=== PATIENT | female | born 1965 | race American Indian/Alaskan Native ===

== ENCOUNTER 2017-05-14 20:23 | Inpatient (IN) | payer MEDICAID, OTHER ==
[2017-05-14 21:57] LABS: BASO % 0.6 % (0.0-2.0); EOS % 0.7 % (0.0-4.0); HEMATOCRIT 38.6 % (34.0-47.0); LYMPH % 41.2 % (20.0-40.0); MEAN CELL VOLUME 92.3 fL (81.0-99.0); MEAN CORPUSCULAR HEMOGLOBIN 31.2 pg (27.0-31.0); MEAN CORPUSCULAR HGB CONC 33.8 g/dL (33.0-37.0); MONO # 0.4 K/uL (0.0-0.8); NRBC % 0.1 % (0.0-2.0); RED CELL DISTRIBUTION WIDTH 15.1 % (11.5-14.5); WHITE BLOOD COUNT 7.2 K/uL (4.8-10.8)
[2017-05-14 22:06] LABS: CHLORIDE 104 mmol/L (98-107); POTASSIUM 3.9 mmol/L (3.6-5.2); SODIUM 140 mmol/L (132-148)
[2017-05-14 22:07] LABS: RBC URINE < 1 /hpf (0-3); URINE BACTERIA RARE (<OCC); URINE BILIRUBIN NEGATIVE (NEGATIVE); URINE BLOOD NEGATIVE (NEGATIVE); URINE COLOR Yellow (YELLOW); URINE GLUCOSE (UA) NORMAL (Normal); URINE KETONE NEGATIVE (NEGATIVE); URINE LEUKOCYTE ESTERASE TRACE Leu/uL (Negative); URINE PROTEIN NEGATIVE (NEGATIVE); URINE UROBILINOGEN NORMAL mg/dL (0.2-1.0); WBC URINE 3 /hpf (0-5)
[2017-05-14 22:08] LABS: ALB/GLOB RATIO 1.1 (1.0-2.1); AST/SGOT 35 U/L (14-36); BILIRUBIN,TOTAL 0.4 mg/dL (0.2-1.3); CARBON DIOXIDE 22 mmol/L (22-30); GFR AFRICAN-AMERICAN > 60
[2017-05-14 22:09] LABS: ALCOHOL SERUM 110 mg/dl (0-10); ALKALINE PHOSPHATASE 92 U/L (38-126); ALT/SGPT 39 U/L (9-52); BLOOD UREA NITROGEN 14 mg/dL (7-17); CALCIUM 8.7 mg/dl (8.6-10.4); GLUCOSE,RANDOM 88 mg/dL (65-105)
--- NOTE | 2017-05-14 22:40 | C.PDOC ---
History Of Present Illness Pt is here requesting detox from alcohol and heroin. Time Seen by Provider: 05/14/17 21:28 Chief Complaint (Nursing): Substance Abuse History Per: Patient Onset/Duration Of Symptoms: Days Current Symptoms Are (Timing): Still Present Suicide/Self Injury Attempted (Context): None Modifying Factor(s): Alcohol, Narcotics, Cocaine Associated Symptoms: denies: Suicidal Thoughts, Suicidal Plan Additional History Per: Prior Records Past Medical History Reviewed: Historical Data, Nursing Documentation, Vital Signs Vital Signs: Last Vital Signs Temp 98.1 F 05/14/17 21:04 Pulse 90 05/14/17 21:04 Resp 16 05/14/17 21:04 BP 100/66 05/14/17 21:04 Pulse Ox 96 05/14/17 21:04 - Medical History PMH: Schizophrenia, Seizures - [facility] Procedures DETOXIFICATION SERVICES FOR SUBSTANCE ABUSE TREATMENT (11/05/15) Family History: States: Unknown Family Hx - Social History Hx Tobacco Use: Yes Hx Alcohol Use: Yes Hx Substance Use: Yes (HEROIN, Cocaine) - Immunization History Hx Tetanus Toxoid Vaccination: Yes Hx Influenza Vaccination: No Hx Pneumococcal Vaccination: No Review Of Systems Except As Marked, All Systems Reviewed And Found Negative. Constitutional: Negative for: Fever Cardiovascular: Negative for: Chest Pain Respiratory: Negative for: Shortness of Breath Gastrointestinal: Negative for: Vomiting, Abdominal Pain Musculoskeletal: Negative for: Neck Pain Skin: Negative for: Rash Neurological: Negative for: Weakness, Numbness Physical Exam - Physical Exam Appears: Non-toxic, No Acute Distress Skin: Normal Color, Warm, Dry, No Rash Head: Atraumatic, Normacephalic Eye(s): bilateral: Normal Inspection, PERRL, EOMI Neck: Normal ROM, Supple Cardiovascular: Rhythm Regular Respiratory: Normal Breath Sounds, No Accessory Muscle Use Gastrointestinal/Abdominal: Soft, No Tenderness Extremity: Normal ROM Neurological/Psych: Oriented x3, Normal Motor, Normal Sensation ED Course And Treatment - Laboratory Results Result Diagrams: 05/14/17 21:53 05/14/17 21:53 Lab Interpretation: No Acute Changes Urine POC: Negative O2 Sat by Pulse Oximetry: 96 Pulse Ox Interpretation: Normal Progress Note: Pt is medically stable for detox admission. Disposition Counseled Patient/Family Regarding: Studies Performed, Diagnosis, Smoking Cessation - Disposition Disposition: HOSPITALIZED Disposition Time: 22:41 Condition: STABLE - Clinical Impression Clinical Impression: Alcohol dependence, Opioid dependence, Drug abuse Decision To Admit - Pt Status Changed To: Hospital Disposition Of: Inpatient - Admit Certification Admit to Inpatient:: After my assessment, the patient will require hospitalization for at least two midnights. This is because of the severity of symptoms shown, intensity of services needed, and/or the medical risk in this patient being treated as an outpatient. - InPatient: Physician Admission Certification: I certify that this patient requires 2 or more midnights of care for the following reason:: Detox. - . Bed Request Type: Detox Admitting Physician: Sadnra Gramajo Patient Diagnosis: Alcohol dependence, Opioid dependence, Drug abuse
[2017-05-14] MEDS ORDERED: Aluminum Hydroxide/Magnesium Hydroxide Susp (30 mL) PO PRN (23:10)
--- NOTE | 2017-05-15 02:26 | PCM.BM ---
<Shae Reeder - Last Filed: 05/15/17 02:29> Treatment Plan Problems - Problems identified on initial assessmt Alcohol Dependence Date Initiated: 05/15/17 Time Initiated: 02:25 Assessment reference: NA Opiate dependence Date Initiated: 05/15/17 Time Initiated: 02:30 Assessment reference: NA Treatment assets and liabiliti Patient Assests: cooperative, ADL independent, negotiates basic needs, good interpersonal skills Patient Liabilities: substance abuse, medical problems - Milieu Protocol Maintain good personal hygiene: daily Encourage regular showers, daily Remind patient to perform daily oral care, daily Assist patient to perform ADL's Conduct patient checks and document Observation sheet: Q15 minutes Maintain personal safety: every shift Educate patient to report safety concerns to staff, every shift Monitor environment for contraband/sharps Medication safety: Monitor for expected outcome, potential side effects: every shift, Assess barriers to learning: every shift, Assess readiness for medication education: every shift <Lianne Harding - Last Filed: 05/15/17 14:48> Family Contact Family involvement: Famliy/SO not involved Family contact: Patient agrees to contact - Goals for Treatment Patient goals for treatment: Complete detox and attend IOP at [facility] where pt. is receiving psychiatric care. Discharge/Continuing Care - Education Needs Education Needs: Patient Medication, Patient Diagnosis/Disease Process, Patient Coping Skills, Patient Anger Management skills, Patient Placement options, Patient Community resources, Patient Activities of Daily Living - Discharge Discharge Criteria: No longer exhibiting s/s of withdrawal, Reduction of target symptoms Discharge to:: With Family - Treatment Team Participation Patient/Family/SO Statement: 05/15/17 14:49 "I wanna go to [facility] for IOP...maybe I'll consider Suboxone." Discussed with Family/SO: No Was Patient/Family/SO present at Treatment Team Meeting: Yes <Sandra Gramajo - Last Filed: 05/16/17 11:02> - Diagnosis (1) Alcohol use disorder, severe, dependence Status: Acute Interventions: 05/16/17 11:01 * Assess 7x/week regarding severity of withdrawal * Educate regarding risks, benefits, side effects and alternatives of medications * Use Motivational Interviewing for abstinence * Use CBT for relapse prevention * Medication management for withdrawal symptoms * Encourage medication assisted treatment * (2) Opioid dependence Status: Acute Interventions: 05/16/17 11:01 * Assess 7x/week regarding severity of withdrawal * Educate regarding risks, benefits, side effects and alternatives of medications * Use Motivational Interviewing for abstinence * Use CBT for relapse prevention * Medication management for withdrawal symptoms * Encourage medication assisted treatment *
[2017-05-15] MEDS: Multiple Vitamins Tab PO SCH (10:09)
--- NOTE | 2017-05-15 15:17 | PCM.PSYCH ---
Initial Psychiatric Evaluation - Initial Psychiatric Evaluation Type of Admission: Voluntary Legal Status: Capacity Chief Complaint (in patient's own words): "I am not doing good doc, I drink a lot" History of Present Illness and Precipitating Events: Pt is a 51 year old female with no PMH who presented to the ED on 05/14/2017 requesting opioid, cocaine and alcohol detox. Pt reports she is but has been from her for 5 years, has 12 children, lives with her mother in law and is currently unemployed. Pt reports that her "drug of choice" is alcohol which she states has been drinking since the age of [age] years old. She reports drinking 2-3 pints of alcohol a day. Pt states that she started using heroin at the age of [age] years old. She reports she uses approximately 10 bags of heroin daily, which she intranasally. She also uses crack daily which she reports started approximately 5 years ago. Pt reports she has attended approximately 5 detoxes in the past as well as 2 rehabs. She reports she attends NA meetings sometimes and is currently in a Methadone program where they are trying " to do detox me from it". Pt reports that she was on 190mg of Methadone at one point and has been decreased daily by 10 mg which she reports "is too much doc and that is why I relapsed". She reports that when she stops drinking she "shakes, I get nervous". Wenconfirmed her last dose as 25 mg yesterday Pt smokes approximately 1/2 a pack of cigarettes daily. Pt denies any other substance use. As per her records, pt has had one previous psychiatric admission in the past at [facility] due to "Bipolar disorder or Schizophrenia" and he she was "hearing things all due to stress and depression in my life." Pt denies any current hallucinations, or SI. Pt also reports that her mother has a psychiatric history of bipolar disorder as well as "my mother is an alcoholic". Pt denies any current hallucinations, or SI. After care discussed. Pt states she is unsure what she wants to do. Pt is encouraged to attend [facility]'s IOP where she currently follows up to ensure she can receive care at the same facility. Pt states "yeah, that's a good idea. I also want NA and AA meetings too". Pt reports that perhaps she "would like to try Suboxone again since it was good for me, I was on it before and was clean for 4 years" She will speak with counselors and SW to arrange this. Pt is encouraged to do so. Current Medications: Active Medications Generic Name Dose Route Start Last Admin Trade Name Freq PRN Reason Stop Dose Admin Acetaminophen 650 mg 05/14/17 23:08 Tylenol 325mg Tab PO Q6 PRN Pain, moderate (4-7) Al Hydrox/Mg Hydrox/Simethicone 30 ml 05/14/17 23:10 Maalox 30 Ml PO TID PRN Indigestion / Heartburn Chlordiazepoxide 25 mg 05/15/17 00:00 05/15/17 13:17 Librium PO 05/18/17 23:59 25 mg Q6H DEISY Administration Taper Chlordiazepoxide 25 mg 05/14/17 23:04 Librium PO Q4H PRN Alcohol Withdrawal Clonidine HCl 0.1 mg 05/14/17 23:04 05/15/17 06:13 Catapres PO 0.1 mg Q4H PRN Administration Symptoms of alcohol withdrawl Folic Acid 1 mg 05/15/17 10:00 05/15/17 10:09 Folic Acid PO 1 mg DAILY DEISY Administration Gabapentin 300 mg 05/15/17 10:00 05/15/17 10:09 Neurontin PO 300 mg BID DEISY Administration Hydroxyzine HCl 50 mg 05/14/17 23:08 Atarax PO Q6H PRN Anxiety Loperamide HCl 2 mg 05/14/17 23:10 Imodium PO Q8 PRN Diarrhea Methadone HCl 25 mg 05/15/17 10:00 05/15/17 11:07 Methadone PO 05/20/17 09:59 25 mg Q24H DEISY Administration Taper Multivitamins 1 tab 05/15/17 10:00 05/15/17 10:09 Hexavitamin PO 1 tab DAILY DEISY Administration Ondansetron HCl 4 mg 05/14/17 23:10 Zofran Tab PO Q8 PRN Nausea/Vomiting Pneumococcal Polyvalent Vaccine 0.5 ml 05/18/17 10:00 Pneumovax 23 Vaccine IM 05/18/17 10:01 .ONCE ONE Thiamine HCl 100 mg 05/15/17 10:00 05/15/17 10:09 Vitamin B1 Tab PO 100 mg DAILY DEISY Administration Trazodone HCl 100 mg 05/14/17 23:08 05/15/17 00:48 Desyrel PO 100 mg HS PRN Administration Insomnia Past Psychiatric History - Past Psychiatric History Pertinent Medical Hx (Current Medical&Sleep Prob, Allergies): Allergies Allergy/AdvReac Type Severity Reaction Status Date / Time ibuprofen Allergy Verified 05/14/17 21:06 tomato Allergy Verified 05/14/17 21:06 ACIDS Allergy Uncoded 05/14/17 21:06 KETCHUP Allergy Uncoded 05/14/17 21:06 QUEtiapine [SEROquel] 400 mg PO DAILY 05/14/17 Sertraline [Zoloft] 50 mg PO DAILY 05/14/17 Review of Systems - Neurological Neurological: Tremor - Psychiatric Psychiatric: Abnormal Sleep Pattern, Anhedonia, Anxiety, Difficulty Concentrating. absent: Hallucinations, Homicidal Ideation, Suicidal Ideation Mental Status Examination - Personal Presentation Personal Presentation: Looks stated age - Affect Affect: Broad - Motor Activity Motor Activity: Calm - Reliability in Providing Information Reliability in Providing Information: Good - Speech Speech: Organized, Relevant, Coherent - Mood Mood: Neutral - Formal Thought Process Formal Thought Process: No Impairment - Obsessions/Compulsions Obsessions: No Compulsions: No - Cognitive Functions Orientation: Person, Place, Situation, Time Sensorium: Alert Attention/Concentration: Attentive Estimate of Intelligence: Average Judgement: Intact, as evidence by: Insight regarding need for hospitalization Memory: Recent intact, as evidence by: Ability to recall events of the day, Remote intact, as evidenced by: Abilit to recall sig. life events - Risk Risk: Withdrawal, Diminished functioning - Strength & Assets Inventory Strength & Assets Inventory: Family support, Interests/hobbies, Life experience , Cooperative DSM 5 DX - DSM 5 DSM 5 Diagnosis: Opioid use disorder, severe Opioid withdrawal Cocaine use disorder, severe Alcohol use disorder, severe Alcohol withdrawal Bipolar disorder, unspecified - Recommended/Plan of Treatment Treatment Recommendations and Plan of Treatment: Librium detox Methadone detox Start: Librium taper Methadone taper Clonidine 0.1mg PO Q4 Folic Acid 1mg PO DAILY Gabapentin 300mg PO BID Atarax 50mg PO Q6 Thiamine 100mg PO DAILY Trazadone 100mg PO HS PRN Continue as needed medications Gabapentin for augmentation Attend groups and activities Supportive therapy and psychoeducation ID for abstinence CBT for relapse prevention Encourage MAT Refer to rehab or IOP Attend self-help groups as well 33 mins Projected ELOS: 4-5 days Prognosis: Good with treatment Discharge Plan and Discharge Criteria: Subutex detox As needed medications Gabapentin for augmentation Attend groups and activities Supportive therapy and psychoeducation ID for abstinence CBT for relapse prevention Encourage MAT Refer to rehab or IOP Attend self-help groups as well - Smoking Cessation Smoking Cessation Initiated: Yes
[2017-05-16] MEDS: Multiple Vitamins Tab PO SCH (09:43)
--- NOTE | 2017-05-16 15:00 | PCM.PYCHPN ---
Psychiatric Progress Note - Psychiatric Progress Note Patient seen today, length of contact: 15 minutes Patient Chief Complaint: I'm not feeling well. I need more medication. Problems Identified/Issues Discussed: Patient seen. Chart reviewed. Case discussed with the staff. Issues related to illness and treatment were discussed with the patient. Reported compliant with treatment with no adverse affects. Tolerating treatment very well. Patient reported not feeling well. Still has a lot of withdrawal symptoms including abdominal pain, body aches, discharge he, difficult to stand. Education provided to the patient about the need substance use and detox. At the time of evaluationl, patient was awake alert oriented 3, had no delusions, no auditory or visual hallucinations, no suicidal ideations or homicidal ideations. Diagnostic Results: Reviewed DSM 5 Symptoms Update: Improvement with treatment Medication Change: No Medical Record Reviewed: Yes Mental Status Examination - Cognitive Function Orientation: Person, Place, Situation, Time Memory: Intact Attention: WNL Concentration: WNL Association: [facility] Fund of Knowledge: [facility] Decription of patient's judgement and insights: Fair - Mood Mood: Depressed, Anxious - Affect Affect: Other (Appropriate) - Speech Speech: Appropriate - Formal Thought Process Formal Thought Process: No Impairment Psychotic Thoughts and Behaviors: None - Suicidal Ideation Suicidal Ideation: No - Homicidal Ideation Homicidal Ideation: No Goal/Treatment Plan - Goal/Treatment Plan Need for Continued Stay: Remain at risks for inpatient hospitalization, Discharge may exacerbated symptoms, Severe functional impairment Progress Toward Problem(s) and Goals/Treatment Plan: Patient education Supportive therapy Continue treatment as before Motivational interview for abstinence CBT for relapse prevention Estimated Date of D/C: 05/21/17 - Smoking Cessation Smoking Cessation Initiated: No
[2017-05-16] MEDS ORDERED: Albuterol-Ipratrop 3 mg / 0.5 (3 ml) UD INH STA (21:06)
--- NOTE | 2017-05-17 03:38 | CP.PCM.PCO ---
Physician Communication Note - Physician Communication Note Physician Communication Note: Please see above
[2017-05-17 06:31] VITALS: RESP 18
[2017-05-17] MEDS ORDERED: Pantoprazole 40 mg EC Tab PO SCH (11:00)
[2017-05-17] MEDS: Multiple Vitamins Tab PO SCH (11:01)
--- NOTE | 2017-05-17 14:44 | RAD ---
PROCEDURE: Radiographs of the chest and abdomen (obstructive series) HISTORY: Abdominal Pain COMPARISON: No prior. TECHNIQUE: AP radiograph of the chest, with upright and supine radiographs of the abdomen. FINDINGS: CHEST: Lungs: Clear. Cardiovascular: Normal size heart. No pulmonary vascular congestion. Pleura: No pleural fluid. No pneumothorax. Other findings: None. ABDOMEN AND PELVIS: Bowel: Unremarkable bowel gas pattern. No evidence of mechanical obstruction. Free air: None. Bones: Unremarkable. Other findings: None. IMPRESSION: Unremarkable radiographs of chest and abdomen. No evidence of mechanical bowel obstruction.
--- NOTE | 2017-05-17 15:59 | PCM.PYCHPN ---
Psychiatric Progress Note - Psychiatric Progress Note Patient seen today, length of contact: 15 minutes Patient Chief Complaint: I'm not feeling well. Last night I vomited twice. Still I feel nauseous. Problems Identified/Issues Discussed: Patient seen. Chart reviewed. Case discussed with the staff. Issues related to illness and treatment were discussed with the patient. Reported compliant with treatment with no adverse affects. Tolerating treatment very well. Patient reported not feeling well. Last night patient vomited twice and got Zofran, still patient reported feeling nauseous. Patient was evaluated by medical doctor last night in order abdominal x-ray to rule out him to spell obstruction. We will start Protonix in the morning as patient may have gastritis due to alcohol use. Other withdrawal symptoms are very mild. At the time of evaluationl, patient was awake alert oriented 3, had no delusions, no auditory or visual hallucinations, no suicidal ideations or homicidal ideations. Diagnostic Results: Reviewed DSM 5 Symptoms Update: Some improvement with treatment Medication Change: Yes (Start Protonix) Medical Record Reviewed: Yes Mental Status Examination - Cognitive Function Orientation: Person, Place, Situation, Time Memory: Intact Attention: WNL Concentration: WNL Association: [facility] Fund of Knowledge: [facility] Decription of patient's judgement and insights: Fair - Mood Mood: Neutral - Affect Affect: Other (Appropriate) - Speech Speech: Appropriate - Formal Thought Process Formal Thought Process: No Impairment Psychotic Thoughts and Behaviors: None - Suicidal Ideation Suicidal Ideation: No - Homicidal Ideation Homicidal Ideation: No Goal/Treatment Plan - Goal/Treatment Plan Need for Continued Stay: Remain at risks for inpatient hospitalization, Discharge may exacerbated symptoms, Severe functional impairment Progress Toward Problem(s) and Goals/Treatment Plan: Patient education Supportive therapy We'll start Protonix Continue rest of the treatment as before Motivational interview for abstinence CBT for relapse prevention Estimated Date of D/C: 05/21/17 - Smoking Cessation Smoking Cessation Initiated: No
[2017-05-18 07:54] VITALS: BP 135/89; PULSE 89; TEMP 98; O2SAT 99
--- NOTE | 2017-05-18 08:50 | PCM.PYCHDC ---
Mental Status Examination - Mental Status Examination Orientation: Person, Place, Situation, Time Memory: Intact Mood: Anxious Affect: Constricted Speech: Appropriate Attention: WNL Concentration: WNL Association: WNL Fund of Knowledge: WNL Formal Thought Process: No Impairment Suicidal Ideation: No Current Homicidal Ideation?: No Discharge Summary - Discharge Note Reason for Hospitalization: Alcohol and heroin detox and withdrawal Consultations:: List each consultation separately and include: 1. Reason for request. 2. Findings. 3. Follow-up Summary of Hospital Course include:: 1. Description of specific treatment plan utilized for patients during their course of treatmen. 2. Summarize the time- course for resolution of acute symptoms and/or regressed behaviors. 3. Describe issues identified and worked on during hospitalization. 4. Describe medication utilized. 5. Describe medical problems identified and treated. 6. Reassessment of suicide risk Summary of Hospital Course: The pt was admitted for alcohol and heroin detox and started on treatment with psychotherapy, support, psychoeducation and medications. [place] and CBT used. Pt stated she felt better and wanted to be discharged over the weekend Pt repeatedly ask to be discharged after admission. Recommended Pt to stay and finish detox before being discharged. Pt left against medical advice without waiting for the web content writer to arrive in AM ( even though she was told it would be 30 min) - Final Diagnosis (DSM 5) Condition upon Discharge: STABLE DSM 5: Alcohol Use Disorder- Severe Opioid Use Disorder - Severe Disposition: AGAINST MEDICAL ADVICE Follow-up Treatment Plan: Discussed Risks of leaving prior to completing Detox program Use relapse prevention skills Return to ER or call 911 if suicidal, homicidal or symptoms relapse. Stay away from stress, alcohol and drugs. See primary doctor regularly and get labs. - Smoking Cessation Smoking Cessation Medication prescribed: No - Antipsychotic Medications Pt discharged on 2 or more routine antipsychotic medications: No
[2017-05-18] MEDS ORDERED: Influenza Vaccine 60 mcg/0.5 mL SYR (4YR UP) IM ONE (10:00)
[2017-05-18] MEDS ORDERED: Pneumococcal 23-Valent Vaccine IM ONE (10:00)
== END 2017-05-18 07:55 | disposition left against medical advice (07) | DRG 743 ==
LOC: C.ER 20:23 → C.7D 22:42
PROVIDERS: ADMIT Psychiatry & Neurology Psychiatry; ATTEND Psychiatry & Neurology Psychiatry
PROC: HZ2ZZZZ Detoxification Services for Substance Abuse Treatment (ICD-10-PCS; principal; 2017-05-14)
PROC: HZ59ZZZ Individual Psychotherapy for Substance Abuse Treatment, Supportive (ICD-10-PCS; 2017-05-14)
PROC: HZ46ZZZ Group Counseling for Substance Abuse Treatment, Psychoeducation (ICD-10-PCS; 2017-05-14)
DX: F10.230 Alcohol dependence with withdrawal, uncomplicated (principal); F14.20 Cocaine dependence, uncomplicated; F20.9 Schizophrenia, unspecified; F11.23 Opioid dependence with withdrawal; F17.210 Nicotine dependence, cigarettes, uncomplicated; F31.9 Bipolar disorder, unspecified; Z81.1 Family history of alcohol abuse and dependence

== ENCOUNTER 2018-03-17 11:42 | Emergency (ER) | payer MEDICAID, OTHER ==
[2018-03-17 12:08] VITALS: BP 103/68; PULSE 92; RESP 20; TEMP 99.1; O2SAT 97
--- NOTE | 2018-03-17 13:35 | C.PDOC ---
History Of Present Illness 52 y/o female presents to ED with c/o right ear pain associated with decreased hearing. Patient states she feels fullness to right ear and denies trauma, foreign body, headache, drainage, fever or any other complaints at this time. Time Seen by Provider: 03/17/18 12:05 Chief Complaint (Nursing): ENT Problem History Per: Patient History/Exam Limitations: None Onset/Duration Of Symptoms: Days Current Symptoms Are (Timing): Still Present Quality (Ear): Pain W/Touch. denies: Discharge, Foreign Body Past Medical History Reviewed: Historical Data, Nursing Documentation, Vital Signs Vital Signs: Last Vital Signs Temp 99.1 F 03/17/18 12:04 Pulse 92 H 03/17/18 12:04 Resp 20 03/17/18 12:04 BP 103/68 03/17/18 12:04 Pulse Ox 97 03/17/18 13:40 - Medical History PMH: Asthma, Bipolar Disorder, Schizophrenia, Seizures Surgical History: No Surg Hx - [facility] Procedures DETOXIFICATION SERVICES FOR SUBSTANCE ABUSE TREATMENT (05/14/17) GROUP UNARMED SECURITY OFFICER FOR SUBSTANCE ABUSE TREATMENT, PSYCHOEDUCATION (05/14/17) INDIV PSYCHOTHERAPY FOR SUBSTANCE ABUSE TREATMENT, SUPPORT (05/14/17) Family History: States: No Known Family Hx - Social History Hx Tobacco Use: Yes Hx Alcohol Use: Yes Hx Substance Use: Yes (HEROIN, Cocaine) - Immunization History Hx Tetanus Toxoid Vaccination: Yes Hx Influenza Vaccination: No Hx Pneumococcal Vaccination: No Review Of Systems Constitutional: Negative for: Fever, Chills ENT: Positive for: Ear Pain. Negative for: Ear Discharge Skin: Negative for: Rash Physical Exam - Physical Exam Appears: Non-toxic, No Acute Distress Skin: Warm, Dry, No Rash Head: Atraumatic, Normacephalic Eye(s): bilateral: Normal Inspection Ear(s): Left: TM Obscured By Wax, Right: Other (TM questionable perforation, cerumen noted to canal. No mastoid tenderness) Oral Mucosa: Moist Throat: Normal, No Erythema, No Exudate Neurological/Psych: Oriented x3, Normal Speech, Normal Cognition ED Course And Treatment O2 Sat by Pulse Oximetry: 97 (RA) Pulse Ox Interpretation: Normal Disposition - Disposition Referrals: Ruy Mckinley MD [Staff Provider] - Disposition: HOME/ ROUTINE Disposition Time: 12:05 Condition: GOOD Additional Instructions: FAVIOLA RICARDO, thank you for letting us take care of you today. Your provider was Hector Kingston DO and you were treated for RT EAR PAIN. The emergency medical care you received today was directed at your acute symptoms. If you were prescribed any medication, please fill it and take as directed. It may take several days for your symptoms to resolve. Return to the Emergency Department if your symptoms worsen, do not improve, or if you have any other problems. Please contact your doctor or call one of the physicians/clinics you have been referred to that are listed on the Patient Visit Information form that is included in your discharge packet. Bring any paperwork you were given at discharge with you along with any medications you are taking to your follow up visit. Our treatment cannot replace ongoing medical care by a primary care provider outside of the emergency department. Thank you for allowing the [facility] team to be part of your care today. Follow up with the ENT doctor in 3-4 days for re-evaluation and further management. Prescriptions: Amoxicillin [Amoxil 500 mg Cap] 500 mg PO TID #21 cap Instructions: Ear Infections (Otitis Media) (DC) Forms: [facility]EDU (Yoruba) - Clinical Impression Clinical Impression: Otitis media - Scribe Statement The provider has reviewed the documentation as recorded by the Tinyibe Saqib Gardner All medical record entries made by the Tinyibtonie were at my direction and personally dictated by me. I have reviewed the chart and agree that the record accurately reflects my personal performance of the history, physical exam, medical decision making, and the department course for this patient. I have also personally directed, reviewed, and agree with the discharge instructions and disposition.
== END 2018-03-17 12:21 | disposition home or self-care (01) ==
LOC: C.ER 11:42
DX: H66.91 Otitis media, unspecified, right ear (principal); F17.210 Nicotine dependence, cigarettes, uncomplicated

== ENCOUNTER 2018-08-02 10:14 | Inpatient (IN) | payer OTHER ==
[2018-08-02 10:46] LABS: BASO % 0.7 % (0.0-2.0); EOS # 0.1 K/uL (0.0-0.7); EOS % 0.9 % (0.0-4.0); HEMOGLOBIN 14.3 g/dL (11.0-16.0); LYMPH # 2.9 K/uL (1.0-4.3); LYMPH % 45.1 % (20.0-40.0); MEAN CELL VOLUME 91.4 fL (81.0-99.0); MEAN CORPUSCULAR HEMOGLOBIN 31.2 pg (27.0-31.0); MEAN CORPUSCULAR HGB CONC 34.1 g/dL (33.0-37.0); MEAN PLATELET VOLUME 6.7 fL (7.2-11.7); MONO # 0.5 K/uL (0.0-0.8); NEUT # 2.9 K/uL (1.8-7.0); NEUT % 45.3 % (50.0-75.0); RBC 4.58 Mil/uL (3.80-5.20); RED CELL DISTRIBUTION WIDTH 13.5 % (11.5-14.5); WHITE BLOOD COUNT 6.5 K/uL (4.8-10.8)
[2018-08-02 10:51] LABS: SQUAMOUS EPITHIAL 1 /hpf (0-5); URINE BACTERIA RARE (<OCC); URINE BILIRUBIN NEGATIVE (NEGATIVE); URINE BLOOD NEGATIVE (NEGATIVE); URINE CLARITY Clear (Clear); URINE COLOR Straw (YELLOW); URINE GLUCOSE (UA) NORMAL (Normal); URINE LEUKOCYTE ESTERASE 3+ Leu/uL (Negative); URINE PROTEIN NEGATIVE (NEGATIVE); URINE UROBILINOGEN NORMAL mg/dL (0.2-1.0)
[2018-08-02 11:00] LABS: BARBITURATES, UR NEGATIVE (NEGATIVE); BENZODIAZEPINES, UR NEGATIVE (NEGATIVE); PHENCYCLIDINE, UR NEGATIVE (NEGATIVE)
[2018-08-02 11:01] LABS: ALB/GLOB RATIO 1.3 (1.0-2.1); ALBUMIN 4.3 g/dL (3.5-5.0); ALT/SGPT 26 U/L (9-52); AST/SGOT 27 U/L (14-36); BLOOD UREA NITROGEN 13 mg/dL (7-17); CALCIUM 9.1 mg/dl (8.6-10.4); GFR NON-AFRICAN AMERICAN > 60
[2018-08-02 11:06] LABS: OPIATES, UR POSITIVE (NEGATIVE)
[2018-08-02] MEDS ORDERED: Albuterol-Ipratrop 3 mg / 0.5 (3 ml) UD INH STA (11:23)
--- NOTE | 2018-08-02 11:32 | C.PDOC ---
History Of Present Illness 53 year old female presents to the ED requesting heroin, cocaine and alcohol detox. Patient has history of asthma, and admits to experiencing shortness of breath last night. Patient denies suicidal/homicidal ideation. Time Seen by Provider: 08/02/18 10:22 Chief Complaint (Nursing): Substance Abuse History Per: Patient History/Exam Limitations: no limitations Onset/Duration Of Symptoms: Hrs Current Symptoms Are (Timing): Still Present Modifying Factor(s): Alcohol, Cocaine, Other (heroin ) Associated Symptoms: denies: Suicidal Thoughts, Suicidal Plan Recent travel outside of the [place]: No Additional History Per: Patient Past Medical History Reviewed: Historical Data, Nursing Documentation, Vital Signs Vital Signs: Last Vital Signs Temp 97.4 F L 08/02/18 10:20 Pulse 106 H 08/02/18 10:20 Resp 20 08/02/18 10:20 BP 113/74 08/02/18 10:20 Pulse Ox 91 L 08/02/18 10:20 - Medical History PMH: Asthma, Bipolar Disorder, HTN, Schizophrenia Denies: Diabetes, Hepatitis, HIV, Chronic Kidney Disease, Seizures, Sexually Transmitted Disease Surgical History: No Surg Hx - [facility] Procedures DETOXIFICATION SERVICES FOR SUBSTANCE ABUSE TREATMENT (05/14/17) GROUP PHARMACOLOGY ASSOCIATE FOR SUBSTANCE ABUSE TREATMENT, PSYCHOEDUCATION (05/14/17) INDIV PSYCHOTHERAPY FOR SUBSTANCE ABUSE TREATMENT, SUPPORT (05/14/17) Family History: States: Unknown Family Hx - Social History Hx Tobacco Use: Yes Hx Alcohol Use: Yes Hx Substance Use: Yes (HEROIN, Cocaine) - Immunization History Hx Tetanus Toxoid Vaccination: Yes Hx Influenza Vaccination: No Hx Pneumococcal Vaccination: No Review Of Systems Respiratory: Positive for: Shortness of Breath Psych: Positive for: Other (alcohol, cocaine, heroin detox ). Negative for: Suicidal ideation Physical Exam - Physical Exam Appears: Non-toxic, No Acute Distress Skin: Normal Color, Warm, Dry Head: Atraumatic, Normacephalic Eye(s): bilateral: Normal Inspection Oral Mucosa: Moist Neck: Supple Chest: Symmetrical, No Deformity, No Tenderness Cardiovascular: Rhythm Regular, No Murmur Respiratory: No Rales, No Rhonchi, Wheezing (mild, expiratory ) Extremity: Normal ROM, Capillary Refill (less than 2 seconds ) Neurological/Psych: Oriented x3, Normal Speech, Normal Cognition ED Course And Treatment - Laboratory Results Result Diagrams: 08/02/18 10:43 08/02/18 10:43 O2 Sat by Pulse Oximetry: 91 Medical Decision Making Medical Decision Making: Impression: 53 year old female requesting detox, complaining of shortness of breath Plan: * bloodwork * urinalysis * Albuterol INH * Prednisone PO Progress: Bloodwork and urinalysis ordered and reviewed. Albuterol INH and Prednisone PO given. Labs reviewed with no acute findings. In my clinical judgment patient is medically cleared and stable for admission. PES contacted for evaluation. As per PES patient is to be admitted under Dr James service for detox Disposition - Disposition Disposition: HOSPITALIZED Disposition Time: 12:00 Condition: STABLE - POA Present On Arrival: None - Clinical Impression Clinical Impression: Opioid dependence, Asthma - PA / NURSING ASSISTANT / Resident Statement MD/DO has reviewed & agrees with the documentation as recorded. - Scribe Statement The provider has reviewed the documentation as recorded by the Scribe (Catrina Saucedo) All medical record entries made by the Scribe were at my direction and personally dictated by me. I have reviewed the chart and agree that the record accurately reflects my personal performance of the history, physical exam, medical decision making, and the department course for this patient. I have also personally directed, reviewed, and agree with the discharge instructions and disposition. Decision To Admit - Pt Status Changed To: Hospital Disposition Of: Inpatient - Admit Certification Admit to Inpatient:: After my assessment, the patient will require hospitalization for at least two midnights. This is because of the severity of symptoms shown, intensity of services needed, and/or the medical risk in this patient being treated as an outpatient. - InPatient: Physician Admission Certification: I certify that this patient requires 2 or more midnights of care for the following reason:: Patient to be admitted for inpatient detox - . Bed Request Type: Detox Admitting Physician: Sumeet James Patient Diagnosis: Opioid dependence
[2018-08-02] MEDS ORDERED: Albuterol-Ipratrop 3 mg / 0.5 (3 ml) UD ONE (11:33)
--- NOTE | 2018-08-02 14:08 | PCM.BM ---
<Jeremias Gloria - Last Filed: 08/02/18 14:07> Treatment assets and liabiliti Patient Assests: cooperative, motivated, ADL independent, negotiates basic needs, good interpersonal skills Patient Liabilities: poor support system, substance abuse - Milieu Protocol Maintain good personal hygiene: daily Encourage regular showers, every shift Remind patient to perform daily oral care, every shift Assist patient to perform ADL's Maintain personal safety: daily Educate patient to report safety concerns to staff, every shift Monitor environment for contraband/sharps Medication safety: Monitor for expected outcome, potential side effects: daily, Assess barriers to learning: daily, Assess readiness for medication education: daily <Sumeet James - Last Filed: 08/04/18 20:58> - Diagnosis (1) Alcohol use disorder, severe, dependence Status: Acute Interventions: 08/04/18 20:58 * Assess 7x/week regarding severity of withdrawal * Educate regarding risks, benefits, side effects and alternatives of medications * Use Motivational Interviewing for abstinence * Use CBT for relapse prevention * Medication management for withdrawal symptoms * Encourage medication assisted treatment (2) Opioid use disorder, severe, dependence Status: Acute Interventions: 08/04/18 20:58 * Assess 7x/week regarding severity of withdrawal * Educate regarding risks, benefits, side effects and alternatives of medications * Use Motivational Interviewing for abstinence * Use CBT for relapse prevention * Medication management for withdrawal symptoms * Encourage medication assisted treatment (3) Cocaine use disorder, severe, dependence Status: Acute Interventions: 08/04/18 20:58 * Assess 7x/week regarding severity of withdrawal * Educate regarding risks, benefits, side effects and alternatives of medications * Use Motivational Interviewing for abstinence * Use CBT for relapse prevention * Medication management for withdrawal symptoms * Encourage medication assisted treatment
[2018-08-02] MEDS: Multiple Vitamins Tab PO SCH (15:20)
[2018-08-03] MEDS: Multiple Vitamins Tab PO SCH (09:45)
[2018-08-03] MEDS ORDERED: Albuterol HFA 90 mcg/actuation (8 g) INH PRN (18:26)
--- NOTE | 2018-08-03 21:50 | PCM.PSYCH ---
Initial Psychiatric Evaluation - Initial Psychiatric Evaluation Type of Admission: Voluntary Legal Status: Capacity Chief Complaint (in patient's own words): I need help for my substance use. History of Present Illness and Precipitating Events: Patient is a 53 years old, , unemployed, -Citizen Of [place] female with history of bipolar disorder was admitted due to withdrawing from heroin, alcohol and cocaine. Opioid: Patient started using heroin at 22 years of age, was using 3 bundles of heroin daily, sniffing. Last used yesterday. Her longest period of abstinence was about 6 years from [id number]. Patient was in methadone maintenance treatment program 1 year ago. History of detox and to rehab. Alcohol: Started at 15 years of age, was drinking 2, 6 packs of beer and half pint of vodka daily. Last used yesterday. She drank 5 cans of beer. Cocaine: Started at 30 years of age. Patient was guarded about cocaine. Cigarettes: Smokes half pack of cigarettes daily and is requesting for nicotine patch. Patient was born in [place], has 10th grade of education. Not working for last 10 years. and has 10 grownup children from 2 different meals. She lives with her [id number]. Her height is 5 feet 4 inches and weight is 160 pounds. Current Medications: Active Medications Generic Name Dose Route Start Last Admin Trade Name Freq PRN Reason Stop Dose Admin Al Hydrox/Mg Hydrox/Simethicone 30 ml 08/02/18 14:38 Maalox 30 Ml PO TID PRN Indigestion / Heartburn Albuterol 1 puff 08/03/18 18:26 Ventolin Hfa 90 Mcg/Actuation (8 G) INH RQ6 PRN Shortness of Breath Chlordiazepoxide 25 mg 08/03/18 18:00 08/03/18 17:08 Librium PO 08/07/18 17:59 25 mg Q6 DEISY Administration Taper Clonidine HCl 0.1 mg 08/02/18 14:37 08/03/18 16:36 Catapres PO 0.1 mg Q4H PRN Administration Symptoms of alcohol withdrawl Dicyclomine HCl 10 mg 08/02/18 14:39 08/03/18 16:36 Bentyl PO 10 mg Q6 PRN Administration Muscle spasm Folic Acid 1 mg 08/02/18 16:00 01/01/19 09:45 Folic Acid PO 1 mg DAILY DEISY Administration Gabapentin 300 mg 08/02/18 18:00 08/03/18 17:08 Neurontin PO 300 mg TID DEISY Administration Hydroxyzine HCl 25 mg 08/02/18 14:42 08/03/18 12:20 Atarax PO 25 mg Q6 PRN Administration Anxiety Ibuprofen 600 mg 08/02/18 14:38 Motrin Tab PO Q6 PRN Pain, moderate (4-7) Loperamide HCl 2 mg 08/02/18 14:38 08/03/18 16:36 Imodium PO 2 mg Q8 PRN Administration Diarrhea Methadone HCl 15 mg 08/03/18 10:00 08/03/18 09:45 Methadone PO 08/06/18 09:59 15 mg Q24H DEISY Administration Taper Multivitamins 1 tab 08/02/18 14:45 08/03/18 09:45 Hexavitamin PO 1 tab DAILY DEISY Administration Nicotine 1 patch 08/03/18 12:15 08/03/18 12:20 Nicoderm Cq TD 1 patch DAILY DEISY Administration Ondansetron HCl 4 mg 08/02/18 14:38 08/03/18 16:36 Zofran Tab PO 4 mg Q8 PRN Administration Nausea/Vomiting Sertraline HCl 50 mg 08/03/18 12:15 08/03/18 12:20 Zoloft PO 50 mg DAILY DEISY Administration Thiamine HCl 100 mg 08/02/18 14:45 08/03/18 09:45 Vitamin B1 Tab PO 100 mg DAILY DEISY Administration Trazodone HCl 50 mg 08/02/18 14:37 Desyrel PO HS PRN Insomnia Past Psychiatric History - Past Psychiatric History Previous Treatment History: Inpatient History of Abuse: None reported History of ETOH/Drug Use: See HPI History of Family Illness: Reported her mother uses heroin. Pertinent Medical Hx (Current Medical&Sleep Prob, Allergies): Allergies Allergy/AdvReac Type Severity Reaction Status Date / Time ibuprofen Allergy Verified 08/02/18 10:23 tomato Allergy Verified 08/02/18 10:23 ACIDS Allergy Uncoded 08/02/18 10:23 KETCHUP Allergy Uncoded 08/02/18 10:23 QUEtiapine [SEROquel] 400 mg PO DAILY 05/14/17 Sertraline [Zoloft] 50 mg PO DAILY 05/14/17 Amoxicillin [Amoxil 500 mg Cap] 500 mg PO TID #21 cap 03/17/18 Asthma Hypertension Review of Systems - Psychiatric Psychiatric: As Per HPI, Anxiety, Irritability, Mood Swings Mental Status Examination - Personal Presentation Personal Presentation: Looks stated age - Affect Affect: Other (Appropriate) - Motor Activity Motor Activity: Calm - Reliability in Providing Information Reliability in Providing Information: Fair - Speech Speech: Organized - Mood Mood: Anxious - Formal Thought Process Formal Thought Process: No Impairment - Hallucinations/Delusions Hallucinations: Other (None reported) Delusions: Other - Obsessions/Compulsions Obsessions: None Compulsions: None - Cognitive Functions Orientation: Person, Place, Situation, Time Sensorium: Alert Attention/Concentration: Attentive Abstract Thinking: Amasa Estimate of Intelligence: Average Judgement: Intact, as evidence by: Insight regarding need for hospitalization Memory: Recent intact, as evidence by: Ability to recall events of the day, Remote intact, as evidenced by: Ability to recall historical events - Risk Risk: Withdrawal, Diminished functioning - Strength & Assets Inventory Strength & Assets Inventory: Family support, Cooperative - Limitations Limitations: Other DSM 5 DX - DSM 5 DSM 5 Diagnosis: Opioid use disorder severe Alcohol use disorder severe Cocaine use disorder severe Bipolar I disorder depressed severe with psychotic features. - Recommended/Plan of Treatment Treatment Recommendations and Plan of Treatment: Patient education. Supportive therapy. CBT for relapse prevention. SC for abstinence. We will start methadone taper for opioid withdrawal symptoms. We will start Librium taper for alcohol withdrawal symptoms. Other PRN medications. We will start her home medication. Patient wants to go to methadone maintenance treatment program for follow-up care after discharge from the hospital. Projected ELOS: 4-5 days - Smoking Cessation Smoking Cessation Initiated: Yes
[2018-08-04] MEDS: Multiple Vitamins Tab PO SCH (09:09)
[2018-08-04] MEDS: Aluminum Hydroxide/Magnesium Hydroxide Susp (30 mL) PO PRN (16:43)
--- NOTE | 2018-08-04 21:13 | PCM.PYCHPN ---
Psychiatric Progress Note - Psychiatric Progress Note Patient seen today, length of contact: 15 minutes Patient Chief Complaint: I am not feeling better, I need more methadone. Problems Identified/Issues Discussed: Patient seen, chart reviewed, case discussed with the staff. Issues related to illness and treatment were discussed with the patient and staff. Reported compliant with treatment with no adverse effect. Calm and cooperative. Reported not feeling better. Still having withdrawal symptoms including shaking, sweating, body aches and headache. Requesting for more methadone. Awake, alert and oriented x3. Mood reported as anxious. Affect appropriate. Memory intact. Aftercare discussed with the patient. Denied any delusions, auditory or visual hallucinations, suicidal ideations or homicidal ideations at the time of evaluation. Medical Problems: Asthma Hypertension Diagnostic Results: Reviewed Medication Change: No Medical Record Reviewed: Yes Mental Status Examination - Cognitive Function Orientation: Person, Place, Situation, Time Memory: Intact Attention: WNL Concentration: WNL Association: [facility] Fund of Knowledge: [facility] Decription of patient's judgement and insights: Fair - Mood Mood: Anxious - Affect Affect: Other (Appropriate) - Speech Speech: Appropriate - Formal Thought Process Formal Thought Process: No Impairment Psychotic Thoughts and Behaviors: None - Suicidal Ideation Suicidal Ideation: No - Homicidal Ideation Homicidal Ideation: No Goal/Treatment Plan - Goal/Treatment Plan Need for Continued Stay: Remain at risks for inpatient hospitalization, Discharge may exacerbated symptoms, Severe functional impairment Progress Toward Problem(s) and Goals/Treatment Plan: Patient education. Supportive therapy. CBT for relapse prevention. CT for abstinence. Continue treatment as before. Patient wants to go to methadone maintenance treatment program for follow-up care after discharge from the hospital. Estimated Date of D/C: 08/06/18 - Smoking Cessation Smoking Cessation Initiated: Yes
[2018-08-05] MEDS: Multiple Vitamins Tab PO SCH (10:01)
--- NOTE | 2018-08-05 21:18 | PCM.PYCHPN ---
Psychiatric Progress Note - Psychiatric Progress Note Patient seen today, length of contact: 15 minutes Patient Chief Complaint: I am feeling better. Problems Identified/Issues Discussed: Patient seen, chart reviewed, case discussed with the staff. Issues related to illness and treatment were discussed with the patient and staff. Reported compliant with treatment with no adverse effect. Calm and cooperative. Reported feeling better. Still having withdrawal symptoms including shaking, sweating, body aches and headache but less than before. Requesting for more methadone. Awake, alert and oriented x3. Mood reported as anxious. Affect appropriate. Memory intact. Aftercare discussed with the patient. Denied any delusions, auditory or visual hallucinations, suicidal ideations or homicidal ideations at the time of evaluation. Medical Problems: Asthma Hypertension Diagnostic Results: Reviewed DSM 5 Symptoms Update: Improving with treatment Medication Change: No Medical Record Reviewed: Yes Mental Status Examination - Cognitive Function Orientation: Person, Place, Situation, Time Memory: Intact Attention: WNL Concentration: WNL Association: WNL Fund of Knowledge: WNL Decription of patient's judgement and insights: Fair - Mood Mood: Anxious (Less than before) - Affect Affect: Other (Appropriate) - Speech Speech: Appropriate - Formal Thought Process Formal Thought Process: No Impairment Psychotic Thoughts and Behaviors: None - Suicidal Ideation Suicidal Ideation: No - Homicidal Ideation Homicidal Ideation: No Goal/Treatment Plan - Goal/Treatment Plan Need for Continued Stay: Remain at risks for inpatient hospitalization, Discharge may exacerbated symptoms, Severe functional impairment Progress Toward Problem(s) and Goals/Treatment Plan: Patient education. Supportive therapy. CBT for relapse prevention. [place] for abstinence. Continue treatment as before. Patient wants to go to [facility], methadone maintenance treatment program for follow-up care after discharge from the hospital. Estimated Date of D/C: 08/06/18 - Smoking Cessation Smoking Cessation Initiated: Yes
[2018-08-06 06:22] VITALS: O2SAT 97
[2018-08-06] MEDS: Multiple Vitamins Tab PO SCH (09:18)
[2018-08-06] MEDS: Aluminum Hydroxide/Magnesium Hydroxide Susp (30 mL) PO PRN (09:30)
--- NOTE | 2018-08-06 09:49 | PCM.PYCHDC ---
Mental Status Examination - Mental Status Examination Orientation: Person, Place, Situation, Time Memory: Intact Mood: Neutral Affect: Other (Appropriate) Speech: Appropriate Attention: WNL Concentration: WNL Association: WNL Fund of Knowledge: WNL Formal Thought Process: No Impairment Description of patient's judgement and insight: Fair Psychotic Thoughts and Behaviors: None Suicidal Ideation: No Current Homicidal Ideation?: No Discharge Summary - Discharge Note Reason for Hospitalization: Opioid use disorder severe Alcohol use disorder severe Cocaine use disorder severe Bipolar I disorder depressed severe with psychotic features Laboratory Data: Reviewed Consultations:: List each consultation separately and include: 1. Reason for request. 2. Findings. 3. Follow-up Summary of Hospital Course include:: 1. Description of specific treatment plan utilized for patients during their course of treatmen. 2. Summarize the time- course for resolution of acute symptoms and/or regressed behaviors. 3. Describe issues identified and worked on during hospitalization. 4. Describe medication utilized. 5. Describe medical problems identified and treated. 6. Reassessment of suicide risk Summary of Hospital Course: Patient is a 53 years old, , unemployed, -[place] female with history of bipolar disorder was admitted due to withdrawing from heroin, alcohol and cocaine. Opioid: Patient started using heroin at 22 years of age, was using 3 bundles of heroin daily, sniffing. Last used yesterday. Her longest period of abstinence was about 6 years from [id number]. Patient was in methadone maintenance treatment program 1 year ago. History of detox and to rehab. Alcohol: Started at 15 years of age, was drinking 2, 6 packs of beer and half pint of vodka daily. Last used yesterday. She drank 5 cans of beer. Cocaine: Started at 30 years of age. Patient was guarded about cocaine. Cigarettes: Smokes half pack of cigarettes daily and is requesting for nicotine patch. Patient was born in [place], has 10th grade of education. Not working for last 10 years. and has 10 grownup children from 2 different meals. She lives with her [id number]. Her height is 5 feet 4 inches and weight is 160 pounds. During his stay in the hospital patient was treated with methadone taper for opiate withdrawal symptoms, Librium taper for alcohol withdrawal symptoms. Patient was also started on other when necessary medications. Most of the time patient was isolative in her room resting. With above treatment patient started feeling better. Today patient was stable, had no withdrawal symptoms and ready for discharge from the hospital. At the time of evaluation and discharge, patient was awake, alert and oriented 3, had no delusions, no auditory or visual hallucinations, no suicidal ideations or homicidal ideations. Patient was discharged in a stable condition. - Diagnosis (1) Alcohol use disorder, severe, dependence Current Visit: No Status: Acute (2) Opioid use disorder, severe, dependence Current Visit: Yes Status: Acute (3) Cocaine use disorder, severe, dependence Current Visit: Yes Status: Acute - Final Diagnosis (DSM 5) Condition upon Discharge: STABLE Disposition: HOME/ ROUTINE Follow-up Treatment Plan: Patient will go to [facility], for follow-up care after discharge from the hospital. Prescriptions/Medication Reconciliation: Gabapentin [Neurontin] 300 mg PO TID #90 cap Sertraline [Zoloft] 50 mg PO DAILY #30 tab traZODone [Desyrel] 50 mg PO HS PRN #30 tab PRN Reason: Insomnia - Smoking Cessation Smoking Cessation Medication prescribed: No - Antipsychotic Medications Pt discharged on 2 or more routine antipsychotic medications: No
[2018-08-06 11:02] VITALS: BP 131/94; PULSE 114; RESP 20; TEMP 98.1
== END 2018-08-06 12:00 | disposition home or self-care (01) | DRG 745 ==
LOC: C.ER 10:14 → C.7D 12:00
PROC: GZ56ZZZ Individual Psychotherapy, Supportive (ICD-10-PCS; principal; 2018-08-02)
DX: F10.230 Alcohol dependence with withdrawal, uncomplicated (principal); Y90.3 Blood alcohol level of 60-79 mg/100 ml; F11.23 Opioid dependence with withdrawal; F17.210 Nicotine dependence, cigarettes, uncomplicated; I10 Essential (primary) hypertension; J45.909 Unspecified asthma, uncomplicated; F31.4 Bipolar disorder, current episode depressed, severe, without psychotic features; F14.10 Cocaine abuse, uncomplicated